=== PATIENT | female | born 1985 | race African-American/Black ===

== ENCOUNTER 2017-03-07 14:09 | Emergency (ER) | payer MEDICAID ==
[~2017-03-07] VITALS: Ht 172.7 cm; Wt 86.0 kg
[2017-03-07 15:37] VITALS: BP 126/72
== END 2017-03-07 21:05 | disposition left against medical advice (07) ==
LOC: ER 21:02
DX: R50.9 Fever, unspecified (principal); Z53.21 Procedure and treatment not carried out due to patient leaving prior to being seen by health care provider